=== PATIENT | male | born 1955 | race Caucasian/White ===

== ENCOUNTER 2019-07-02 08:46 | Day surgery (SDC) | payer MEDICARE ==
[2019-06-30 10:51] LABS: BASOPHILS % (AUTO) 0.9 % (0.0-5.0); EOSINOPHILS % (AUTO) 2.5 % (0.0-8.0); HEMATOCRIT 44.6 % (42-54); LYMPHOCYTES % (AUTO) 23.6 % (21.0-51.0); MEAN CORPUSCULAR HGB CONC 33.6 g/dL (32.0-36.0); MEAN CORPUSCULAR VOLUME 89.4 fL (79-99); MONOCYTES % (AUTO) 9.2 % (3.0-13.0); NEUTROPHILS % (AUTO) 63.8 % (40.0-77.0); PLATELET COUNT (AUTO) 188 K/uL (130-400); RED BLOOD CELL COUNT(AUTO) 4.99 MIL/uL (4.50-6.20); RED CELL DISTRIBUTION WIDTH 13.8 % (11.0-15.5); WHITE BLOOD COUNT (AUTO) 6.6 K/uL (4.8-10.8)
[2019-06-30 10:59] LABS: CREATININE 1.4 mg/dL (0.5-1.5); POTASSIUM 4.5 mmol/L (3.5-5.1)
[2019-06-30 11:02] VITALS: BP 148/74
[2019-06-30 12:24] LABS: INR 1.21 (0.85-1.15); PARTIAL THROMBOPLASTIN TIME 28.7 SEC (26.3-35.5); PROTHROMBIN TIME 12.4 SEC (9.6-11.6)
--- NOTE | 2019-07-01 11:17 | NUR ---
PER DR. LEBLANC LOOKED AT ALL LABS, OK TO CONTINUE. NO NEW ORDERS.
[~2019-07-02] VITALS: Ht 182.9 cm; Wt 112.9 kg
[2019-07-02] VITALS (10 sets, daily range): BP systolic 82–154; BP diastolic 72–84
[~2019-07-02 08:46] MED LIST: ASPI-555 PO; ATOR40TA71 PO; DRON400T2 PO; ICOS1CAP PO; METF-444 PO; METO-409 PO; OLME1TAB40 PO; RIVA20TA PO; SODIUM CHLORIDE 0.9% 1000ML 1,000 ML IV SCH; UBID1CAP56 PO
[2019-07-02] MEDS ORDERED: LIDOCAINE PF 2% 5ML ABBOJECT ONE (14:51)
[2019-07-02] MEDS ORDERED: PROPOFOL 10 MG/ML 20ML VIAL IV ONE (14:51)
[2019-07-02] MEDS ORDERED: SUCCINYLCHOLINE 200MG/10ML SYR ONE (14:51)
[2019-07-02] MEDS ORDERED: GLYCOPYRROLATE 1 MG/5 ML SYRINGE ONE (14:52)
[2019-07-02] MEDS ORDERED: ROCURONIUM 10MG/1ML SYR 10 MG/ML ML ONE (14:52)
[2019-07-02] MEDS ORDERED: NEOSTIGMINE 5MG/5ML SYR IV ONE (14:52)
[2019-07-02] MEDS ORDERED: DEXAMETHASONE SOD PHOSPHATE 10MG/ML 1ML VIAL ONE (14:52)
[2019-07-02] MEDS ORDERED: ONDANSETRON HCL 4 MG/2 ML VIAL ONE (14:52)
[2019-07-02] MEDS ORDERED: MIDAZOLAM HCL 1 MG/ML 2ML VIAL ONE (14:52)
[2019-07-02] MEDS ORDERED: LIDOCAINE HCL 2% 20ML ONE (14:53)
[2019-07-02] MEDS ORDERED: FENTANYL CITRATE PF 50 MCG/1 ML 2ML VIAL ONE (14:53)
[2019-07-02] MEDS ORDERED: HEPARIN SODIUM 1000UNIT/ML 10ML VIAL ONE (14:53)
--- NOTE | 2019-07-02 16:45 | NUR ---
PATIENT ARRIVED PATIENT BROUGHT TO DAY PATIENT ROOM 15 VIA STRETCHER BY JETHRO REN. PATIENT AAOX3, RESPIRATIONS UNLABORED, VITAL SIGNS STABLE. DENIES ANY PAIN AT THIS TIME. DRESSING TO LEFT LOWER ARM FROM PREVIOUS A-LINE PLACEMENT. SIDERAILS UP X2, BED IN LOWEST POSITION,CALL MONK IN REACH.
--- NOTE | 2019-07-02 17:30 | NUR ---
DISCHARGE INSTRUCTIONS DISCHARGE INSTRUCTIONS PROVIDED TO PATIENT'S SPOUSE. INSTRUCTED TO CALL DR LEBLANC'S OFFICE ON FRIDAY IN ORDER TO GET NEW DATE FOR ABLATION PROCEDURE. BOTH PATIENT AND SPOUSE VERBALIZED UNDERSTANDING. INSTRUCTED TO RESUME HOME MEDS AND RESUME XARELTO TONIGHT. ALL QUESTIONS/CONCERNS ADDRESSED.
--- NOTE | 2019-07-02 17:48 | NUR ---
DISCHARGED PATIENT DISCHARGED FROM FACILITY VIA WHEELCHAIR AND TAKEN TO PRIVATE VEHICLE DRIVEN BY SPOUSE
== END 2019-07-02 17:48 | disposition home or self-care (01) ==
LOC: DAH 08:46
PROVIDERS: ATTEND Internal Medicine Cardiovascular Disease
DX: I48.0 Paroxysmal atrial fibrillation (principal); E11.9 Type 2 diabetes mellitus without complications; Z79.84 Long term (current) use of oral hypoglycemic drugs; Z79.899 Other long term (current) drug therapy; Z79.01 Long term (current) use of anticoagulants; Z87.891 Personal history of nicotine dependence; Z82.49 Family history of ischemic heart disease and other diseases of the circulatory system; Z79.82 Long term (current) use of aspirin
CPT/HCPCS: 36415; 80048; 82948 ×3; 85025; 85610; 85730; A4215; A4216; A4221; A4222; A4223; A4344; A4649 ×2; A4663; C1894 ×4; J0330; J1100; J1644 ×2; J2001; J2250; J2405; J2704; J2710; J3010; J3490; J7030